=== PATIENT | female | born 1995 | race Caucasian/White ===

== ENCOUNTER 2021-12-09 15:57 | Emergency (ER) | payer OTHER, SELFPAY ==
--- NOTE | ~2021-12-09 | XR_ITS ---
EXAMINATION: XR hand RT min 3V DATE: 12/09/2021 16:46 INDICATION: Right hand pain. TECHNIQUE: 3 views of right hand were obtained. COMPARISON: None. FINDINGS: Bone alignment is normal. No fracture. Joint spaces are well maintained. IMPRESSION: 1. Normal right hand. Reviewed, dictated and finalized at location A. [employer] IMPRESSION: 1. Normal right hand.
[2021-12-09 16:17] VITALS: BP 124/75; PULSE 89; RESP 16; TEMP 36.7; O2SAT 100
--- NOTE | 2021-12-09 16:23 | ED.UPPEXIN ---
HPI - Extremity Injury (Upper) General Chief Complaint: Extremity Injury, Upper Stated Complaint: Right Hand Pain Time Seen by Provider: 12/09/21 16:23 Source: patient Mode of arrival: ambulatory Limitations: no limitations History of Present Illness HPI narrative: Dina Jaime is a 26 yo female no PMH who comes to 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 EYES: Denies visual changes, redness, discharge. ENT: Denies rhinorrhea, congestion, sore throat, otalgia. CARDIOVASCULAR: Denies chest pain, palpitations, edema. RESPIRATORY: Denies dyspnea, wheezing, cough GASTROINTESTINAL: Denies abdominal pain, nausea, vomiting, diarrhea. GENITOURINARY: Denies dysuria, hematuria, abnormal discharge SKIN: Denies rash or itching. NEUROLOGIC: Denies numbness, or focal weakness. PSYCHIATRIC: Denies anxiety or depression. Right hand pain after being hit by a line drive baseball PMFSH Past Medical History Medical History (Updated 12/09/21 @ 17:03 by Adelaida Thompson CNP) Maximus's thyroiditis Family History Family History (Updated 12/09/21 @ 16:27 by Adelaida Thompson CNP) Other Maximus's thyroiditis Comments At time of signature, I agree with nursing past medical, surgical, social and family history. There is no relevant family history pertinent to the presenting complaint. Exam Narrative: GENERAL: This is a well-nourished, well-developed patient, in mild distress. HEAD: normocephalic, atraumatic. EYES: Sclera clear/white. Vision is grossly intact. EARS: External ears normal, auditory canals clear and without drainage, TMs normal without perforation. Hearing grossly intact. NOSE: External nose normal without nasal discharge, nares without redness, no rhinorrhea. THROAT: Mucous membranes moist, NECK: Neck supple, CARDIOVASCULAR: Regular rate and rhythm without murmurs, gallops, or rubs. RESPIRATORY: Clear to auscultation. Breath sounds equal bilaterally. No wheezes, rales, or rhonchi. GASTROINTESTINAL: Abdomen soft, non-tender, SKIN: warm, intact with no suspicious lesions or rash, good texture and turgor. NEURO: awake, alert, and oriented to person, place and time. There were no obvious focal neurologic abnormalities. Steady gait EXTREMITIES: Normal range of motion. Right hand has difficulty with finger opposition and inner finger strength is weaker in right hand BACK: Nontender without deformity Course Course Emergency Course: Patient was hit by a line drive yesterday and has hand pain on right X-ray of right hand shows bone alignment is normal no fracture joint spaces maintained Recommended to get a hand splint from [facility] that stabilizes soft tissue Started on ibuprofen 800 mg- canceled-change to Tylenol 3 every 4 hours Level of Care: Express Care Visit Vital Signs Vital signs: Vital Signs Temperature 98.1 F 12/09/21 16:17 Pulse Rate 89 12/09/21 16:17 Respiratory Rate 16 12/09/21 16:17 Blood Pressure 124/75 12/09/21 16:17 Pulse Oximetry 100 12/09/21 16:17 Temperature 98.1 F 12/09/21 16:17 Pulse Rate 89 12/09/21 16:17 Respiratory Rate 16 12/09/21 16:17 Blood Pressure 124/75 12/09/21 16:17 Pulse Oximetry 100 12/09/21 16:17 MDM - Extremity Injury (Upper) Differential Diagnosis Differential diagnosis: Likely sprain and strain of wrist, finger sprain, f
== END 2021-12-09 17:19 | disposition home or self-care (01) ==
PROVIDERS: Emergency Provider Nurse Practitioner
DX: S63.91XA Sprain of unspecified part of right wrist and hand, initial encounter (principal); W21.03XA Struck by baseball, initial encounter; Y99.0 Civilian activity done for income or pay; E06.3 Autoimmune thyroiditis
CPT/HCPCS: 73130; 99203; G0463